=== PATIENT | male | born 1955 | race Caucasian/White ===

== ENCOUNTER 2021-07-30 08:15 | Inpatient (IN) | payer MEDICARE, MEDICAID ==
[~2021-07-30] VITALS: Ht 167.6 cm; Wt 128.0 kg
--- NOTE | 2021-07-30 09:32 | NUR ---
BP CUFF, PULSE OX IN PLACE. ICE CHIPS PROVIDED AFTER VERIFICATION THAT OKAY FROM ERP. PT AMBULATORY TO BR NEEDED. PT UPDATED ON POC. CALL LIGHT WITHIN REACH.
[2021-07-30] MEDS ORDERED: SODIUM CHLORIDE 0.9% 1,000 ML IV ONE (10:00)
[2021-07-30] MEDS ORDERED: PANTOPRAZOLE 80 MG in SODIUM CHLORIDE 0.9% 50 ML IVPB ONE (10:00)
[2021-07-30] MEDS: PANTOPRAZOLE 80 MG in SODIUM CHLORIDE 0.9% 100 ML IV SCH ×2 (10:02→20:16)
--- NOTE | 2021-07-30 10:04 | NUR ---
LABS DRAWN. PEPCID INFUSING PER ERP ORDER. CALL LIGHT WITHIN REACH. VSS. PILLOW AND WARM BLANKET PROVIDED.
--- NOTE | 2021-07-30 11:00 | NUR ---
PT SLEEPING, RA SAT BETWEEN 89-92%. PT PLACED ON 2LITERS O2 VIA NC.
[2021-07-30] MEDS ORDERED: METF500T17 PO (11:10)
[2021-07-30] MEDS ORDERED: GLIP5TAB10 PO (11:10)
[2021-07-30] MEDS ORDERED: INSULIN PEN SC (11:11)
[2021-07-30] MEDS ORDERED: ONDANSETRON ODT 4 MG PO PRN (12:00)
[2021-07-30] MEDS ORDERED: GLUCAGON 1 MG IM PRN (12:00)
[2021-07-30] MEDS ORDERED: DEXTROSE 50%, 50ML SYRINGE IVPush PRN (12:00)
[2021-07-30] MEDS: SODIUM CHLORIDE FLUSH 10ML SYR IVF SCH ×2 (12:00→20:25)
[2021-07-30] MEDS ORDERED: DEXTROSE 4 GM TAB.CHEW PO PRN (12:00)
--- NOTE | 2021-07-30 12:09 | NUR ---
2ND IV PLACED BY DOG LICENSER. CALL LIGHT WITHIN REACH, AWAITING ADMIT BED.
[2021-07-30] MEDS: PANTOPRAZOLE 40 MG IV IVPush SCH ×2 (12:10→23:46)
[2021-07-30] MEDS: LACTATED RINGERS 1,000 ML IV SCH (12:22)
[2021-07-30 12:23] LABS: ALBUMIN 2.3 g/dL (3.4-5.0)
[2021-07-30 12:27] LABS: BILIRUBIN, DIRECT 0.3 mg/dL (0.1-0.2); BILIRUBIN,INDIRECT 0.5 mg/dL (0.0-2.0); BILIRUBIN,TOTAL 0.8 mg/dL (0.2-1.0); TOTAL PROTEIN 5.7 g/dL (6.4-8.2)
--- NOTE | 2021-07-30 12:34 | NUR ---
FS OBTAINED, 346. REPORT TO JENIFER MORA READY FOR TRANSPORT TO [facility]. Addendum: 07/30/21 at 1236 by RADHA FS REPORTED TO ABBY DOVE WHO WILL GIVE INSULIN ORDERED WHEN OBTAINED FROM PHARM.
[2021-07-30] MEDS ORDERED: INSU100V8 SQ (13:56)
[2021-07-30] MEDS ORDERED: LISI-170 PO (13:56)
[2021-07-30] MEDS ORDERED: METO-93 PO (13:56)
[2021-07-30] MEDS: INSULIN LISPRO 100 UNITS/ML, PEN SQ-INSULIN SCH ×5 (14:52→20:47)
[2021-07-30 14:59] VITALS: BP 142/72
[2021-07-30] MEDS ORDERED: CEFOTETAN 2 GM ONE (15:10)
[2021-07-30] MEDS ORDERED: PROPOFOL 50 ML ONE (15:14)
[2021-07-30] MEDS ORDERED: ONDANSETRON 2MG/ML, 2ML IVPush PRN (15:30)
[2021-07-30] MEDS ORDERED: FENTANYL PF 100 MCG/2ML IV PRN (15:30)
[2021-07-30] MEDS ORDERED: DIPHENHYDRAMINE 50 MG/ML, 1ML IVPush PRN (15:30)
[2021-07-30] MEDS ORDERED: LABETALOL 5MG/ML, 20ML IV PRN (15:30)
[2021-07-30] MEDS ORDERED: MEPERIDINE/PF 25MG/0.5ML IVPush PRN (15:30)
[2021-07-30] MEDS ORDERED: PROMETHAZINE 25 MG/ML, 1ML IVPush PRN (15:30)
[2021-07-30] MEDS ORDERED: EPHEDRINE 50 MG/ML, 1ML IM PRN (15:30)
[2021-07-30] MEDS ORDERED: OXYcodone 5 MG/5 ML ORAL.SOL UDC PO PRN (15:30)
[2021-07-30] MEDS ORDERED: morphine SULFATE 10 MG/ML, 1ML IVPush PRN (15:30)
[2021-07-30] MEDS ORDERED: EPHEDRINE 50 MG/ML, 1ML IVPush PRN (15:30)
[2021-07-30] MEDS: SUCRALFATE 1 GM/10 ML UDC PO SCH ×2 (16:00→20:25)
[2021-07-30] MEDS ORDERED: OCTREOTIDE 50 MCG/ML, 1ML (0.05MG/ML) IVPush ONE (16:30)
[2021-07-30] MEDS: OCTREOTIDE 500 MCG in SODIUM CHLORIDE 0.9% 99 ML IV PRN (16:47)
[2021-07-30 18:44] VITALS: BP 121/82
[2021-07-30] MEDS: INSULIN GLARGINE 100 UNITS/ML, PEN SQ-INSULIN SCH (20:47)
[2021-07-31 01:04] VITALS: BP 113/67
[2021-07-31] MEDS: OCTREOTIDE 500 MCG in SODIUM CHLORIDE 0.9% 99 ML IV PRN ×2 (03:16→16:57)
[2021-07-31] MEDS: PANTOPRAZOLE 80 MG in SODIUM CHLORIDE 0.9% 100 ML IV SCH ×2 (05:30→15:39)
[2021-07-31] MEDS: LACTATED RINGERS 1,000 ML IV SCH ×2 (07:06→19:50)
[2021-07-31 07:31] VITALS: BP 148/68
[2021-07-31 07:48] LABS: ALANINE AMINOTRANSFERASE 127 U/L (12-78); ANION GAP 8 mmol/L (5-15); CALCIUM 7.1 mg/dL (8.5-10.1); CHLORIDE 107 mmol/L (98-107)
[2021-07-31 07:50] LABS: ALKALINE PHOSPHATASE 74 U/L (45-117); BILIRUBIN,TOTAL 0.8 mg/dL (0.2-1.0)
[2021-07-31] MEDS: SUCRALFATE 1 GM/10 ML UDC PO SCH ×4 (07:56→21:00)
[2021-07-31] MEDS: INSULIN LISPRO 100 UNITS/ML, PEN SQ-INSULIN SCH ×7 (07:56→21:07)
[2021-07-31] MEDS: SODIUM CHLORIDE FLUSH 10ML SYR IVF SCH ×2 (07:57→21:07)
[2021-07-31 08:13] LABS: INTERNATIONAL NORMALIZED RATIO 1.27 (0.93-1.1); PROTHROMBIN TIME 13.4 Seconds (9.6-11.5)
[2021-07-31] MEDS: PANTOPRAZOLE 40 MG IV IVPush SCH (11:32)
[2021-07-31 12:13] VITALS: BP 110/53
[2021-07-31 19:35] VITALS: BP_SYST 164; BP_SYST 95; BP_DIAS 47; BP_DIAS 82
[2021-07-31] MEDS: INSULIN GLARGINE 100 UNITS/ML, PEN SQ-INSULIN SCH (21:08)
[2021-08-01 00:15] VITALS: BP 110/65
[2021-08-01] MEDS: PANTOPRAZOLE 40 MG IV IVPush SCH ×2 (00:39→11:38)
[2021-08-01] MEDS: MELATONIN 5 MG TABLET PO PRN ×2 (00:57→21:53)
[2021-08-01] MEDS: PANTOPRAZOLE 80 MG in SODIUM CHLORIDE 0.9% 100 ML IV SCH ×2 (02:04→11:38)
[2021-08-01] MEDS: OCTREOTIDE 500 MCG in SODIUM CHLORIDE 0.9% 99 ML IV PRN ×2 (04:10→14:36)
[2021-08-01 06:24] LABS: MEAN CORPUSCULAR HEMOGLOBIN 34.6 pg (27.5-34.5); MEAN CORPUSCULAR HGB CONC 34.1 g/dL (33.2-36.2); MEAN PLATELET VOLUME 7.8 fL (7.4-10.4); PLATELET COUNT 130 x10^3/uL (130-400); RED BLOOD COUNT 2.24 x10^6/uL (4.38-5.82); RED CELL DISTRIBUTION WIDTH 14.5 % (9.4-14.8)
[2021-08-01 06:36] LABS: ALBUMIN 1.9 g/dL (3.4-5.0); ANION GAP 5 mmol/L (5-15); CALCIUM 6.8 mg/dL (8.5-10.1); CHLORIDE 107 mmol/L (98-107)
[2021-08-01 06:44] LABS: ALANINE AMINOTRANSFERASE 168 U/L (12-78); ALKALINE PHOSPHATASE 72 U/L (45-117); BILIRUBIN,TOTAL 0.9 mg/dL (0.2-1.0); CREATININE 0.89 mg/dL (0.7-1.3); TOTAL PROTEIN 4.8 g/dL (6.4-8.2)
[2021-08-01] MEDS: INSULIN LISPRO 100 UNITS/ML, PEN SQ-INSULIN SCH ×7 (07:00→21:51)
[2021-08-01] MEDS: SUCRALFATE 1 GM/10 ML UDC PO SCH ×4 (07:00→21:51)
[2021-08-01 07:18] LABS: BAND#(MANUAL) 0.31 x10^3/uL; BANDS%(MANUAL) 4 % (0-7); EOS#(MANUAL) 0.23 x10^3/uL (0.0-0.4); EOS% (MANUAL) 3 % (1-7); LYMPH#(MANUAL) 1.87 x10^3/uL (1-3.4); LYMPHS% (MANUAL) 24 % (22-44); METAMYELOCYTES# (MANUAL) 0.23 x10^3/uL (0-0); METAMYELOCYTES% (MANUAL) 3 % (0-1); MONOS#(MANUAL) 0.47 x10^3/uL (0.3-2.7); MONOS% (MANUAL) 6 % (2-9); SEG#(MANUAL) 4.68 x10^3/uL (1.8-6.8); SEGS% (MANUAL) 60 % (42-75)
[2021-08-01 07:19] LABS: POLYCHROMASIA 1+
[2021-08-01 07:20] LABS: <PLATELET ESTIMATE> ADEQUATE; <PLT MORPHOLOGY> NORMAL PLT MORPH
[2021-08-01 07:40] VITALS: BP 123/67
[2021-08-01] MEDS: SODIUM CHLORIDE FLUSH 10ML SYR IVF SCH ×2 (09:00→21:51)
[2021-08-01] MEDS: LACTATED RINGERS 1,000 ML IV SCH (09:24)
[2021-08-01 12:50] VITALS: BP 107/57
[2021-08-01 14:26] LABS: ALBUMIN 1.8 g/dL (3.4-5.0); BILIRUBIN, DIRECT 0.3 mg/dL (0.1-0.2)
[2021-08-01 14:27] LABS: BILIRUBIN,INDIRECT 0.6 mg/dL (0.0-2.0); BILIRUBIN,TOTAL 0.9 mg/dL (0.2-1.0); TOTAL PROTEIN 4.8 g/dL (6.4-8.2)
[2021-08-01 19:42] VITALS: BP_SYST 82; BP_SYST 96; BP_DIAS 42; BP_DIAS 55
[2021-08-01] MEDS: INSULIN GLARGINE 100 UNITS/ML, PEN SQ-INSULIN SCH (21:52)
[2021-08-02 00:40] VITALS: BP 104/66
[2021-08-02] MEDS: OCTREOTIDE 500 MCG in SODIUM CHLORIDE 0.9% 99 ML IV PRN (01:56)
[2021-08-02 06:35] VITALS: BP 106/66
[2021-08-02 06:42] LABS: MEAN CORPUSCULAR HEMOGLOBIN 34.6 pg (27.5-34.5); MEAN CORPUSCULAR HGB CONC 34.2 g/dL (33.2-36.2); MEAN PLATELET VOLUME 8.7 fL (7.4-10.4); PLATELET COUNT 124 x10^3/uL (130-400); RED BLOOD COUNT 2.37 x10^6/uL (4.38-5.82); RED CELL DISTRIBUTION WIDTH 15.4 % (9.4-14.8)
[2021-08-02 06:53] LABS: ANION GAP 8 mmol/L (5-15); CHLORIDE 108 mmol/L (98-107)
[2021-08-02 06:57] LABS: ALANINE AMINOTRANSFERASE 176 U/L (12-78); ALKALINE PHOSPHATASE 86 U/L (45-117); BILIRUBIN,TOTAL 0.7 mg/dL (0.2-1.0); TOTAL PROTEIN 5.2 g/dL (6.4-8.2)
[2021-08-02 07:55] LABS: EOS#(MANUAL) 0.61 x10^3/uL (0.0-0.4); EOS% (MANUAL) 7 % (1-7); LYMPH#(MANUAL) 1.74 x10^3/uL (1-3.4); LYMPHS% (MANUAL) 20 % (22-44); METAMYELOCYTES# (MANUAL) 0.17 x10^3/uL (0-0); METAMYELOCYTES% (MANUAL) 2 % (0-1); MONOS#(MANUAL) 1.04 x10^3/uL (0.3-2.7); MONOS% (MANUAL) 12 % (2-9); MYELOCYTES# (MANUAL) 0.17 x10^3/uL (0-0); MYELOCYTES% (MANUAL) 2 % (0-0); SEG#(MANUAL) 4.96 x10^3/uL (1.8-6.8); SEGS% (MANUAL) 57 % (42-75)
[2021-08-02 07:56] LABS: <PLATELET ESTIMATE> DECREASED; <PLT MORPHOLOGY> NORMAL PLT MORPH; ANISOCYTOSIS 1+; POLYCHROMASIA 1+
[2021-08-02] MEDS: SUCRALFATE 1 GM/10 ML UDC PO SCH ×4 (08:04→20:52)
[2021-08-02] MEDS: PANTOPRAZOLE 40MG TABLET PO SCH ×2 (08:05→20:52)
[2021-08-02] MEDS: SODIUM CHLORIDE FLUSH 10ML SYR IVF SCH ×2 (08:05→20:55)
[2021-08-02] MEDS: INSULIN LISPRO 100 UNITS/ML, PEN SQ-INSULIN SCH ×7 (08:06→20:54)
[2021-08-02 14:48] VITALS: BP 143/86
[2021-08-02 20:13] VITALS: BP 103/63
[2021-08-02 20:35] LABS: OCCULT BLOOD POSITIVE (NEGATIVE)
[2021-08-02] MEDS: MELATONIN 5 MG TABLET PO PRN (20:52)
[2021-08-02] MEDS: INSULIN GLARGINE 100 UNITS/ML, PEN SQ-INSULIN SCH (20:55)
[2021-08-03 01:20] VITALS: BP 129/70
[2021-08-03 07:44] VITALS: BP 114/67
[2021-08-03] MEDS: INSULIN LISPRO 100 UNITS/ML, PEN SQ-INSULIN SCH ×6 (07:47→16:00)
[2021-08-03] MEDS: PANTOPRAZOLE 40MG TABLET PO SCH (07:47)
[2021-08-03] MEDS: SUCRALFATE 1 GM/10 ML UDC PO SCH ×3 (07:47→16:00)
[2021-08-03] MEDS: SODIUM CHLORIDE FLUSH 10ML SYR IVF SCH (07:48)
[2021-08-03] MEDS ORDERED: SUCR1ORA5 PO (12:55)
[2021-08-03] MEDS ORDERED: PANT40TA6 PO (12:55)
[2021-08-03] MEDS ORDERED: LISI5TAB7 PO ×2 (12:58)
[2021-08-03] MEDS ORDERED: METO25TA91 PO (12:58)
[2021-08-03 13:57] VITALS: BP 103/63
[2021-08-03] MEDS ORDERED: INSULIN GLARGINE 100 UNITS/ML, PEN SQ-INSULIN SCH (21:00)
[2021-08-10] MEDS ORDERED: FURO40TA6 PO (12:53)
[2021-08-10] MEDS ORDERED: SPIR100T PO (12:53)
== END 2021-08-03 16:59 | disposition home or self-care (01) | DRG 432 ==
LOC: ED 11:22 → 4NW 12:31 → 4WST 17:34
PROVIDERS: ADMIT Internal Medicine; ATTEND Internal Medicine
PROC: 0W3P8ZZ Control Bleeding in Gastrointestinal Tract, Via Natural or Artificial Opening Endoscopic (ICD-10-PCS; principal; 2021-07-30 14:30)
DX: K74.60 Unspecified cirrhosis of liver (principal); I85.11 Secondary esophageal varices with bleeding; E43 Unspecified severe protein-calorie malnutrition; D62 Acute posthemorrhagic anemia; Z68.42 Body mass index [BMI] 45.0-49.9, adult; R18.8 Other ascites; I86.4 Gastric varices; I50.9 Heart failure, unspecified; D72.829 Elevated white blood cell count, unspecified; E11.65 Type 2 diabetes mellitus with hyperglycemia; E78.5 Hyperlipidemia, unspecified; I11.0 Hypertensive heart disease with heart failure; Z20.822 Contact with and (suspected) exposure to COVID-19; J44.9 Chronic obstructive pulmonary disease, unspecified; E66.01 Morbid (severe) obesity due to excess calories; Z88.0 Allergy status to penicillin; Z79.4 Long term (current) use of insulin; Z79.899 Other long term (current) drug therapy
CPT/HCPCS: 36415; 76700; 80053; 80076; 82105; 82272; 82962; 83036; 83690; 83735; 85018; 85025; 85610; 86850; 86900; 87635; 96365; 99285; G0378; J2354; J2704; C9113; J1815; J7030; J7120